=== PATIENT | male | born 1960 | race Caucasian/White ===

== ENCOUNTER 2023-04-13 06:27 | Day surgery (SDC) | payer BC ==
[~2023-04-13 06:27] MED LIST: Lactated Ringers 1,000 ML IV SCH
[2023-04-13] MEDS ORDERED: dexmedeTOMIDine HCl 200 MCG/2 ML SDV IV ONE (06:28)
[2023-04-13] MEDS ORDERED: propofoL 50 ML ONE (07:35)
[2023-04-13] MEDS ORDERED: Propofol 200 MG/20 ML SDV ONE ×2 (08:15→08:25)
== END 2023-04-13 09:33 | disposition home or self-care (01) ==
LOC: MW.SDS 06:27
PROVIDERS: ATTEND Surgery
DX: Z12.11 Encounter for screening for malignant neoplasm of colon (principal); K29.50 Unspecified chronic gastritis without bleeding; K57.30 Diverticulosis of large intestine without perforation or abscess without bleeding; E78.5 Hyperlipidemia, unspecified; K21.9 Gastro-esophageal reflux disease without esophagitis
CPT/HCPCS: 43239; 45378; J2704; J7120; 00813; J3490

== ENCOUNTER 2024-02-11 08:05 | Emergency (ER) | payer BC ==
[2024-02-11 08:20] LABS: BASOPHILS ABSOLUTE AUTO 0.04 K/uL (0.00-0.20); BASOPHILS PERCENT AUTO 0.4 % (0.0-1.0); EOSINOPHILS ABSOLUTE AUTO 0.01 K/uL (0.00-0.45); EOSINOPHILS PERCENT AUTO 0.1 % (0.0-6.0); HEMATOCRIT 44.5 % (42.0-52.0); HEMOGLOBIN 15.9 g/dL (14.0-18.0); IMMATURE GRAN ABSOLUTE AUTO 0.05 K/uL (0.00-0.05); IMMATURE GRAN PERCENT AUTO 0.6 % (0.0-0.4); LYMPHOCYTES ABSOLUTE AUTO 0.92 K/uL (1.00-4.80); LYMPHOCYTES PERCENT AUTO 10.2 % (24.0-44.0); MEAN CORPUSCULAR HEMOGLOBIN 34.3 pg (28.0-32.0); MEAN CORPUSCULAR HGB CONC 35.7 g/dL (32.0-36.0); MEAN CORPUSCULAR VOLUME 95.9 fL (83.0-99.0); MONOCYTES ABSOLUTE AUTO 0.78 K/uL (0.00-0.80); MONOCYTES PERCENT AUTO 8.7 % (0.0-8.0); PLATELET COUNT,PLT 267 K/uL (150-400); RED BLOOD CELL COUNT 4.64 M/uL (4.52-5.90)
[2024-02-11] MEDS: Sodium Chloride 0.9% 1,000 ML IV ONE (08:23)
[2024-02-11] MEDS: Ondansetron 4 MG/2 ML SDV IVPUSH ONE (08:24)
[2024-02-11] MEDS: Morphine 4 MG/ML Syringe IVPUSH ONE (08:24)
[2024-02-11 08:26] LABS: APPEARANCE,URINE CLEAR; BILIRUBIN,URINE NEGATIVE (NEGATIVE); COLOR,URINE YELLOW; GLUCOSE,URINE NEGATIVE (NEGATIVE); KETONES,URINE 15 mg/dL (NEGATIVE); LEUKOCYTE ESTERASE,URINE NEGATIVE (NEGATIVE); NITRITE,URINE NEGATIVE (NEGATIVE); OCCULT BLOOD,URINE NEGATIVE (NEGATIVE); PROTEIN,URINE NEGATIVE (NEGATIVE); UROBILINOGEN,URINE 0.2 EU/dL (<2.0)
[2024-02-11 08:53] LABS: A/G RATIO 0.9 (0.9-1.6); ALBUMIN 3.5 g/dL (3.4-5.0); BILIRUBIN TOTAL 0.6 mg/dL (0.2-1.0); CALCIUM 9.4 mg/dL (8.5-10.1); CARBON DIOXIDE,CO2 24.8 mmol/L (21.0-32.0); CREATININE 1.1 mg/dL (0.8-1.3); EST CRCL DRUG DOSING (CG) 75.44 mL/min; POTASSIUM,K 3.6 mmol/L (3.5-5.1); PROTEIN TOTAL,TP 7.2 g/dL (6.4-8.2)
[2024-02-11] MEDS: Iopamidol 755 MG/ML 500 ML Multipack Bottle IVPUSH STA (10:01)
== END 2024-02-11 11:00 | disposition home or self-care (01) ==
LOC: MW.ED 08:05
DX: K52.9 Noninfective gastroenteritis and colitis, unspecified (principal); I10 Essential (primary) hypertension; E78.00 Pure hypercholesterolemia, unspecified; E66.9 Obesity, unspecified; Z79.899 Other long term (current) drug therapy; Z75.8 Other problems related to medical facilities and other health care; Z68.30 Body mass index [BMI] 30.0-30.9, adult
CPT/HCPCS: 36415; 74177; 80053; 81003; 83690; 85025; 87328; 87329; 87428; 96361; 96374; 96375; 99284; J2270; J2405; J7030; Q9967